=== PATIENT | female | born 1970 | race Caucasian/White ===

== ENCOUNTER → 2023-10-01 | Outpatient (CLI) | payer OTHER ==
[2023-10-01 14:35] LABS: HCT 42.3 % (37.2-46.3); HGB 13.6 g/dL (12.0-15.0); MCH 27.8 pg (27.0-32.0); MCHC 32.2 g/dL (32.0-37.0); MCV 86.5 FL (80.0-97.0); Mean Platelet Volume 10.8 FL (9.5-12.2); NRBC Per 100 WBC 0 X 10*3/uL (0.00-0.01); Platelet Count 410 X 10*3/uL (140-440); RBC 4.89 X 10*6/uL (4.10-5.20); RDW 13.2 % (11.5-14.5); WBC 5.56 X 10*3/uL (4.50-10.00)
[2023-10-01 14:51] LABS: Chol/HDL Ratio 3.94 Ratio; LDL Cholesterol,Calculated 174.4 mg/dL (0.0-131.0)
== END | disposition home or self-care (01) ==
LOC: LABWHC1 08:24
PROVIDERS: ATTEND Family Medicine
DX: Z00.00 Encounter for general adult medical examination without abnormal findings (principal)
CPT/HCPCS: 36415; 80061; 82525; 85027

== ENCOUNTER → 2023-10-22 | Outpatient (CLI) | payer OTHER ==
[2023-10-22 19:30] LABS: ALT 131 U/L (8-44); AST 62 U/L (13-35); Albumin 4.1 g/dL (3.8-4.9); Albumin/Globulin Ratio 1.64 Ratio (1.60-3.17); Alkaline Phosphatase 152 U/L (41-126); BUN/Creat Ratio 21.67 Ratio (12.00-20.00); Calcium 9.4 mg/dL (8.7-10.3); Carbon Dioxide 23.9 mmol/L (21.6-31.8); Chloride 105 mmol/L (96-109); Globulin 2.5 g/dL (1.6-3.3); Glucose 99 mg/dL (70-110); Potassium 4.1 mmol/L (3.5-5.5); Sodium 141 mmol/L (135-145); Total Bilirubin <0.2 mg/dL (0.3-1.2); Total Protein 6.6 g/dL (6.2-8.2)
== END | disposition home or self-care (01) ==
LOC: LABWHC1 15:04
PROVIDERS: ATTEND Family Medicine
DX: Z00.00 Encounter for general adult medical examination without abnormal findings (principal)
CPT/HCPCS: 36415; 80053

== ENCOUNTER → 2023-11-08 | Outpatient (CLI) | payer OTHER ==
--- NOTE | 2023-11-08 14:11 | US ---
EXAMINATION TYPE: US abdomen complete DATE OF EXAM: 11/08/2023 COMPARISON: NONE CLINICAL INDICATION: Female, 53 years old with history of ELEVATION OF LEVELS OF LIVER TRANSAMINASE R74.01; Patient denies any signs, symptoms, or relevant history TECHNIQUE: Multiple sonographic images of the abdomen are obtained. FINDINGS: EXAM MEASUREMENTS: Liver Length: 15.0 cm Gallbladder Wall: 0.2 cm CBD: 0.4 cm Spleen: 10.8 cm Right Kidney: 9.8 x 4.4 x 5.2 cm Left Kidney: 11.2 x 5.8 x 5.2 cm Pancreas: wnl Liver: wnl Gallbladder: wnl Evidence for sonographic Geiger's sign: No CBD: wnl Spleen: wnl Right Kidney: wnl Left Kidney: wnl Upper IVC: wnl Abd Aorta: wnl The liver is homogenous. The intrahepatic portion of the IVC and proximal abdominal aorta are within normal limits. There is no evidence of cholelithiasis. Common bile duct is unremarkable. The visu alized portions of the pancreas are homogenous. The spleen is unremarkable. Kidneys are symmetric a nd free of hydronephrosis. No renal lesions are seen. IMPRESSION: No significant abnormality seen.
== END | disposition home or self-care (01) ==
LOC: RADUSWWP 09:03
PROVIDERS: ATTEND Family Medicine
DX: R74.01 Elevation of levels of liver transaminase levels (principal)
CPT/HCPCS: 76700

== ENCOUNTER → 2024-09-05 | Outpatient (CLI) | payer BC ==
[2024-09-05 10:21] LABS: Basophils # (A) 0.09 X 10*3/uL (0.00-0.10); Basophils % (A) 1.7 %; Eosinophils # (A) 0.12 X 10*3/uL (0.04-0.35); Eosinophils % (A) 2.2 %; HCT 43.6 % (37.2-46.3); HGB 13.9 g/dL (12.0-15.0); Lymphocytes # (A) 1.87 X 10*3/uL (0.90-5.00); Lymphocytes % (A) 34.7 %; MCHC 31.9 g/dL (32.0-37.0); MCV 84.8 FL (80.0-97.0); Mean Platelet Volume 10.1 FL (9.5-12.2); Monocytes # (A) 0.49 X 10*3/uL (0.20-1.00); Monocytes % (A) 9.1 %; NRBC Per 100 WBC 0.07 X 10*3/uL (0.00-0.01); Neutrophils # (A) 2.78 X 10*3/uL (1.80-7.70); Neutrophils % (A) 51.6 %; Platelet Count 429 X 10*3/uL (140-440); RBC 5.14 X 10*6/uL (4.10-5.20); RDW 14.2 % (11.5-14.5); WBC 5.39 X 10*3/uL (4.50-10.00)
[2024-09-05 11:28] LABS: Chol/HDL Ratio 3.92 Ratio; LDL Cholesterol,Calculated 189.2 mg/dL (0.0-131.0)
[2024-09-05 11:29] LABS: ALT 198 U/L (8-44); AST 117 U/L (13-35); Albumin 4.4 g/dL (3.8-4.9); Albumin/Globulin Ratio 1.57 Ratio (1.60-3.17); Alkaline Phosphatase 177 U/L (41-126); Blood Urea Nitrogen 11.1 mg/dL (9.0-27.0); Calcium 9.4 mg/dL (8.7-10.3); Carbon Dioxide 21.4 mmol/L (21.6-31.8); Chloride 106 mmol/L (96-109); Globulin 2.8 g/dL (1.6-3.3); Glucose 98 mg/dL (70-110); Potassium 4.3 mmol/L (3.5-5.5); Sodium 142 mmol/L (135-145); Total Bilirubin 0.3 mg/dL (0.3-1.2); Total Protein 7.2 g/dL (6.2-8.2)
== END | disposition home or self-care (01) ==
LOC: LABWHC1 07:15
PROVIDERS: ATTEND Family Medicine
DX: R74.01 Elevation of levels of liver transaminase levels (principal)
CPT/HCPCS: 36415; 80053; 80061; 85025